=== PATIENT | male | born 1950 | race Caucasian/White ===

== ENCOUNTER 2019-09-22 06:47 | Outpatient (REF) | payer OTHER, SELFPAY ==
[2019-09-22 08:03] LABS: Basophils # 0.1 10^3/uL (0.0-0.1); Basophils % 0.9 %; Eosinophils # 0.4 10^3/uL (0.0-0.8); Eosinophils % 4.4 %; Hematocrit 47.4 % (42.0-52.0); Hemoglobin 15.2 g/dL (11.7-16.6); Lymphocytes % 22.4 %; Mean Corpuscular HGB Conc 32.1 g/dL (30.0-36.0); Mean Corpuscular Hemoglobin 27.8 pg (28.0-34.0); Mean Corpuscular Volume 86.7 fL (80-94); Mean Platelet Volume 11.1 fL (7.4-10.4); Neutrophils # 5.4 10^3/uL (1.8-7.7); Neutrophils % 60.8 %; Nucleated Red Blood Cells % 0 %; Platelet Count 326 10^3/cmm (130-400); Red Blood Count 5.47 10^6/uL (4.1-5.3); Red Cell Distribution Width 13.9 % (12.1-15.1); White Blood Count 8.9 10^3/uL (4.0-10.0)
[2019-09-22 11:07] LABS: Estmated Average Glucose 151; Hemoglobin A1C 6.9 % (4.0-6.0)
[2019-09-22 12:23] LABS: Chol HDL Ratio 5.94 mg/dL (1.0-5.00); Cholesterol 208 mg/dL (0-200); Glucose 106 mg/dL (65-115); HDL Cholesterol 35 mg/dL (60-100); LDL Cholesterol Calculated 144 mg/dL (50-129); LDL HDL Ratio 4.11 RATIO (0.00-3.22); Triglycerides 143 mg/dL (0-150)
== END 2019-09-22 06:48 | disposition home or self-care (01) ==
LOC: LAB 06:47
PROVIDERS: Family Provider Family Medicine; PCP Family Medicine; Visit Provider Dermatology
DX: Z01.89 Encounter for other specified special examinations (principal)
CPT/HCPCS: 80061; 82947; 83036; 84153; 85025

== ENCOUNTER 2020-02-07 08:01 | Day surgery (SDC) | payer MEDICARE, SELFPAY ==
[2020-02-05 14:20] VITALS: BMI 38.5
[2020-02-07 08:21] VITALS: BP 128/79; PULSE 77; RESP 18; TEMP 36.4; O2SAT 94
--- NOTE | 2020-02-07 08:31 | W.PM.OPSUD ---
Surgery/Procedure H&P Update DATE OF PROCEDURE: February 07, 2020 DATE H&P PERFORMED: 01/24/20 H&P UPDATE INFORMATION: I have reviewed H&P completed within last 30 days, I have examined patient prior to procedure and No changes to prior documentation PREOP DIAGNOSIS: History of colon polyps PRIMARY INDICATION FOR PROCEDURE: The same PLANNED PROCEDURE: Operation Date: 02/07/20 09:00 Proposed Procedures p Colonoscopy 06975 Z86.010(Not Applicable) - Ej Liu MD
[2020-02-07] MEDS: sodium chloride 0.9% 1,000 ML 30 ML IV (08:34)
[2020-02-07 08:55] VITALS: BP 112/74; PULSE 74; RESP 18; TEMP 36.3; O2SAT 97
[2020-02-07 09:10] VITALS: BP 113/70; PULSE 69; RESP 16; O2SAT 97
--- NOTE | 2020-02-07 09:47 | ANE.PACU2 ---
Inpatient post-anesthesia follow up: Airway intact: Yes Vital signs: Temperature 97.3 F Pulse Rate 69 Respiratory Rate 16 Blood Pressure 113/70 Pulse Oximetry 97 Oxygen Delivery Me thod Nasal Cannula Oxygen Flow Rate 3 Fraction of Inspir ed Oxygen Hydration adequate: Yes Nausea and vomiting: No Mental status: Baseline
== END 2020-02-07 09:16 | disposition home or self-care (01) ==
PROVIDERS: PCP Family Medicine; Visit Provider Surgery
PROC: 0DJD8ZZ Inspection of Lower Intestinal Tract, Via Natural or Artificial Opening Endoscopic (ICD-10-PCS; CPT 45378; principal; 2020-02-07 09:00)
DX: Z12.11 Encounter for screening for malignant neoplasm of colon (principal); K57.30 Diverticulosis of large intestine without perforation or abscess without bleeding; Z86.010 Personal history of colon polyps; E78.5 Hyperlipidemia, unspecified; I10 Essential (primary) hypertension
CPT/HCPCS: 12345; 45378

== ENCOUNTER 2021-02-19 06:00 | Outpatient (RCR) | payer MEDICARE, SELFPAY | END 2021-03-15 23:59 | disposition home or self-care (01) | LOC: SPT 06:00 | PROVIDERS: PCP Internal Medicine; Referring Provider Nurse Practitioner Family; Visit Provider Nurse Practitioner Family | DX: M60.9 Myositis, unspecified (principal) | CPT/HCPCS: 97110; 97161; G0283 ==

== ENCOUNTER 2021-03-16 06:00 | Outpatient (RCR) | payer MEDICARE, SELFPAY | END 2021-04-15 23:59 | disposition home or self-care (01) | LOC: SPT 06:00 | PROVIDERS: PCP Internal Medicine; Referring Provider Nurse Practitioner Family; Visit Provider Nurse Practitioner Family | DX: M60.9 Myositis, unspecified (principal); M79.10 Myalgia, unspecified site | CPT/HCPCS: 97110; G0283 ==

== ENCOUNTER 2022-03-11 14:51 | Emergency (ER) | payer MEDICARE, SELFPAY ==
--- NOTE | 2022-03-11 15:02 | CTR_ITS ---
PROCEDURE INFORMATION: Exam: CT Head Without Contrast Exam date and time: 03/11/2022 7:00 PM Age: 71 years old Clinical indication: Weakness, extremity; Right; Additional info: Weakness, numbness right hand with speech disturbance last pm TECHNIQUE: Imaging protocol: Computed tomography of the head without contrast. Radiation optimization: All CT scans at this facility use at least one of these dose optimization techniques: automated exposure control; mA and/or kV adjustment per patient size (includes targeted exams where dose is matched to clinical indication); or iterative reconstruction. COMPARISON: No relevant prior studies available. RADIATION DOSE METRICS: Total DLP (mGy-cm): 1280.38 FINDINGS: Brain: Mild brain atrophy is appreciated. No hemorrhage or evidence of acute infarction. Cerebral ventricles: No ventriculomegaly. Paranasal sinuses: Mild bilateral maxillary and ethmoid sinusitis is appreciated. Mastoid air cells: Visualized mastoid air cells are well aerated. Bones/joints: Unremarkable. No acute fracture. Soft tissues: Unremarkable. CT/CT head wo con* [id number] IMPRESSION: No acute intracranial abnormality. Mild sinusitis.
[2022-03-11 15:03] VITALS: BP 107/69; PULSE 105; RESP 22; TEMP 36.2; O2SAT 95; BMI 37.3
[2022-03-11 17:13] LABS: Basophils # 0.1 10^3/uL (0.0-0.1); Eosinophils # 0.5 10^3/uL (0.0-0.8); Eosinophils % 5.7 %; Hematocrit 49.2 % (42.0-52.0); Lymphocytes # 2.1 10^3/uL (0.8-4.8); Lymphocytes % 22.2 %; Mean Corpuscular HGB Conc 32.5 g/dL (30.0-36.0); Mean Corpuscular Hemoglobin 29.7 pg (28.0-34.0); Mean Corpuscular Volume 91.3 fl (80-94); Mean Platelet Volume 11.3 fL (7.4-10.4); Monocytes # 0.9 10^3/uL (0.2-0.9); Monocytes % 9.3 %; Neutrophils # 5.74 10^3/uL (1.8-7.7); Neutrophils % 61.4 %; Nucleated Red Blood Cells % 0 %; Platelet Count 280 10^3/cmm (130-400); Red Blood Count 5.39 10^6/uL (4.1-5.3); White Blood Count 9.4 10^3/uL (4.0-10.0)
--- NOTE | 2022-03-11 17:15 | ECG_ITS ---
[facility] Test Date: 2022-03-11 Pat Name: Jase Deluna Department: Room: Gender: Male Horse Rider: : 1950 Requested By: Mehul Valero Order Number: [id number] Yi MD: Mireya Alvarez M.D. Measurements Intervals [place] Rate: 69 P: 77 DE: 179 QRS: -35 QRSD: 88 T: 29 QT: 350 QTc: 377 Interpretive Statements SINUS RHYTHM LEFT AXIS DEVIATION [QRS AXIS < -30] POSSIBLE RIGHT VENTRICULAR CONDUCTION DELAY [RSR (QR) IN V1/V2] No previous ECG available for comparison Electronically Signed On 03-12-2022 21:22:09 CDT by Mireya Alvarez M.D. [email or web address]
[2022-03-11 17:33] LABS: Alanine Aminotransferase 18 U/L (0-41); Albumin Level 4.2 g/dL (3.5-5.2); Alkaline Phosphatase 45 IU/L (40-130); Anion Gap 14.8 (5-19); Aspartate Amino Transferase 15 U/L (0-40); Blood Urea Nitrogen 17 mg/dL (8-23); Calcium 9.6 mg/dL (8.5-10.5); Carbon Dioxide 27 mmol/L (22-29); Chloride 99 mmol/L (98-107); Glomerular Filtration Rate 73.9 mL/min (90-130); Glucose 99 mg/dL (65-115); Osmolality Calculated 286 mOsm/kg (285-295); Potassium 3.8 mmol/L (3.5-5.1); Sodium 137 mmol/L (136-145); Total Bilirubin 0.5 mg/dL (0.15-1.2); Total Protein 7.2 g/dL (6.6-8.7)
--- NOTE | 2022-03-11 17:45 | W.ED.NEUROSD ---
HPI - Neuro Symptoms/Deficit General: Chief Complaint: Neuro Symptoms/Deficit Stated Complaint: Weakness, numbness on left side Time Seen by Provider: 03/11/22 17:33 History of Present Illness: 71-year-old male patient comes in today for complaints of confusion last night. Patient reports he was playing a board game with his when he suddenly could not express his words or saying anything. At that time patient also had some numbness in the right hand. Patient reports that it resolved shortly. Patient reported a similar episode approximately 2 weeks prior to that that seem to be much briefer than this episode. Patient denies any headache and has no symptoms today. Patient appears well. Patient appears no acute distress. Review of Systems General: Reports: 10 or more systems reviewed and unremarkable except in HPI and below Neuro: Reports: numbness in extremities (Right hand) and confusion (Could not speak for a brief time) [facility] ED PFSH: Medical History (Updated 03/11/22 @ 19:52 by NATI Wright) History of colon polyps Hyperlipidemia Hypertension Surgical History History of colonoscopy with polypectomy History of excision of testis Right History of thumb surgery History of tonsillectomy Family History Denies family history of Anesthesia complication Bleeding disorder Social History Smoking and tobacco status: never smoked Second hand smoke exposure: No Alcohol intake: never Adopted: No Caregiver/support person: Yes Lives independently: Yes Household members: spouse Housing: House Marital status: Current occupational status: employed Current gender identity: Male NIH stroke score NIHSS: Level Of Consciousness - 1a: 0 Level Of Consciousness Questions - 1b: Both Correct Level Of Consciousness Commands - 1c: Both Correct Best Gaze - 2: Normal Visual Winter - 3: No Visual Loss Facial Palsy - 4: Normal Motor Arm Right - 5: No Drift Motor Arm Left - 5: No Drift Motor Leg Right - 6: No Drift Motor Leg Left - 6: No Drift Limb Ataxia - 7: Absent Sensory - 8: Normal Best Language - 9: No Aphasia Dysarthia - 10: Normal Extinction And Inattention - 11: 0 Score: Total Score: 0 Physical Exam Const: COMMON NORMALS: patient oriented x3 and alert HENMT: COMMON NORMALS: normocephalic HEAD & SCALP: normocephalic Neck/C-Spine: COMMON NORMALS: full ROM and no meningeal signs CAROTIDS: No bruit Resp: COMMON NORMALS: normal respiratory effort and clear to auscultation bilaterally AUSCULTATION: clear to auscultation bilaterally Cardio: COMMON NORMALS: regular rate and regular rhythm RATE: regular rate RHYTHM: regular rhythm Extremity: COMMON NORMALS: normal to inspection and no calf tenderness Neuro: COMMON NORMALS: patient oriented x3, moves all extremities, no focal motor deficits and no sensory deficits noted SENSORIUM/ORIENTATION: Yes alert MENINGEAL SIGNS: Yes no meningeal signs GAIT: Yes Normal gait present Psych: COMMON NORMALS: mental status grossly normal and cooperative Skin: COMMON NORMALS: no rashes or lesions noted GENERAL SKIN EXAM: no rashes or lesions noted Course Vital Signs: Vital signs: Vital Signs Temperature 97.2 F L 03/11/22 15:03 Pulse Rate 70 03/11/22 18:03 Respiratory Rate 16 03/11/22 18:03 Blood Pressure 117/73 03/11/22 18:03 Pulse Oximetry 93 03/11/22 18:03 Oxygen Delivery Me thod 03/11/22 18:03 MDM - Neuro Symptoms/Deficit Medical Decision Making 71-year-old male patient comes in today with a brief episode of inability to say a word last night and numbness in his right hand that lasted for about 5 minutes. Patient reported a similar episode about 2 weeks prior to that that he felt was much briefer. On exam patient appears well. No neurofocal deficits are noted. Skin is warm and dry. No edema is noted in the extremities. Vital signs are normal. Differential diagnosis includes CVA, TIA, dementia, laboratory values were unremarkable. CT of the head was normal. I was not able to auscultate any bruits in the carotids. Suspect patient probably might have had a small TIA patient is already on anticholesterol medication I recommended a daily baby aspirin. We will refer to neurology for further evaluation and consideration of other treatment. Lab Data : 03/11/22 16:44 03/11/22 16:[address] 03/11/22 15:02 IMPRESSION: No acute intracranial abnormality. Mild sinusitis. Laboratory Results WBC 9.4 10^3/uL (4.0-10.0) 03/11/22 16:44 RBC 5.39 10^6/uL (4.1-5.3) H 03/11/22 16:44 Hgb 16.0 g/dL (11.7-16.6) 03/11/22 16:44 Hct 49.2 % (42.0-52.0) 03/11/22 16:44 MCV 91.3 fl (80-94) 03/11/22 16:44 MCH 29.7 pg (28.0-34.0) 03/11/22 16:44 MCHC 32.5 g/dL (30.0-36.0) 03/11/22 16:44 RDW 13.0 % (12.1-15.1) 03/11/22 16:44 Plt Count 280 10^3/cmm (130-400) 03/11/22 16:44 MPV 11.3 fL (7.4-10.4) H 03/11/22 16:44 Neut % (Auto) 61.4 % 03/11/22 16:44 Lymph % (Auto) 22.2 % 03/11/22 16:44 [place] % (Auto) 9.3 % 03/11/22 16:44 Eos % (Auto) 5.7 % 03/11/22 16:44 Baso % (Auto) 1.0 % 03/11/22 16:44 Neut # (Auto) 5.74 10^3/uL (1.8-7.7) 03/11/22 16:44 Lymph # (Auto) 2.1 10^3/uL (0.8-4.8) 03/11/22 16:44 [place] # (Auto) 0.9 10^3/uL (0.2-0.9) 03/11/22 16:44 Eos # (Auto) 0.5 10^3/uL (0.0-0.8) 03/11/22 16:44 Baso # (Auto) 0.1 10^3/uL (0.0-0.1) 03/11/22 16:44 Nucleated RBC % (auto) 0 % 03/11/22 16:44 Nucleated RBCs # 0.0 /100WBC 03/11/22 16:44 Sodium 137 mmol/L (136-145) 03/11/22 16:44 Potassium 3.8 mmol/L (3.5-5.1) 03/11/22 16:44 Chloride 99 mmol/L (98-107) 03/11/22 16:44 Carbon Dioxide 27 mmol/L (22-29) 03/11/22 16:44 Anion Gap 14.8 (5-19) 03/11/22 16:44 BUN 17 mg/dL (8-23) 03/11/22 16:44 Creatinine 1.0 mg/dL (0.7-1.2) 03/11/22 16:44 GFR Calculation 73.9 mL/min (90-130) L 03/11/22 16:44 Glucose 99 mg/dL (65-115) 03/11/22 16:44 Calculated Osmolality 286 mOsm/kg (285-295) 03/11/22 16:44 Calcium 9.6 mg/dL (8.5-10.5) 03/11/22 16:44 Total Bilirubin 0.5 mg/dL (0.15-1.2) 03/11/22 16:44 AST 15 U/L (0-40) 03/11/22 16:44 ALT 18 U/L (0-41) 03/11/22 16:44 Alkaline Phosphatase 45 IU/L (40-130) 03/11/22 16:44 Total Protein 7.2 g/dL (6.6-8.7) 03/11/22 16:44 Albumin 4.2 g/dL (3.5-5.2) 03/11/22 16:44 Globulin 3.0 g/dL (1.3-4.6) 03/11/22 16:44 Discharge Plan Discharge Patient Disposition: Home Clinical Impression: Altered mental status, unspecified Condition: Stable Prescriptions: New aspirin 81 mg tablet,chewable 81 mg PO DAILY Qty: 30 0RF No Action lisinopril-hydrochlorothiazide 20-25 mg tablet 1 tab PO DAILY ascorbic acid (vitamin C) 1,000 mg tablet extended release 1,000 mg PO DAILY pravastatin 80 mg tablet 80 mg PO DAILY coenzyme Q10 [Co Q-10] 100 mg capsule 100 mg PO DAILY testosterone cypionate 200 mg/mL oil 200 mg IM .3 WEEKS omega-3 fatty acids 500 mg capsule 600 mg PO DAILY Discharge Orders: Discharge ED (Routine); Ordered 03/11/22 Ordered By: Mehul Garrido Referrals: Sonya Lr DO [Primary Care Provider] - Discharge Diet: Usual diet Discharge Activity: Increase activity as tolerated Patient Instructions: Stroke (DC) Activity Restrictions/Additional Instructions: Activity as tolerated. Add a baby aspirin to your regimen daily. Continue with your cholesterol medication. Follow-up with neurologist for further evaluation and treatment. Return to ER for worsening symptoms such as chest pain, shortness of breath, severe headache, or further neurologic changes. Coding Level of Care Code ED Treating Machine Operator for Anita Zheng
[2022-03-11 18:03] VITALS: BP 117/73; PULSE 70; RESP 16; O2SAT 93
--- NOTE | 2022-03-12 08:17 | DCPLANNER ---
Addendum entered by Margaret Branham 03/26/22 12:41: Patient had a follow up appointment scheduled fro 03.25.22 with neurology - patient did attend appointment. Original Note: auto leasing manager had message to schedule a follow up appointment for patient with neurology. auto leasing manager sent patients information to the front office staff at neurology. Patients information will be printed and reviewed. Clinic will call patient with appointment information.
== END 2022-03-11 20:02 | disposition home or self-care (01) ==
PROVIDERS: Emergency Provider Nurse Practitioner Family; PCP Internal Medicine
DX: R41.82 Altered mental status, unspecified (principal); I10 Essential (primary) hypertension; E78.5 Hyperlipidemia, unspecified
CPT/HCPCS: 70450; 80053; 85025; 93005; 99285

== ENCOUNTER → 2022-03-25 08:21 | Outpatient (BNVA) | payer MEDICARE, SELFPAY | PROVIDERS: PCP Nurse Practitioner Family; Referring Provider Nurse Practitioner Family; Visit Provider Nurse Practitioner | DX: I69.320 Aphasia following cerebral infarction (principal); I69.398 Other sequelae of cerebral infarction; R20.2 Paresthesia of skin; F41.9 Anxiety disorder, unspecified | CPT/HCPCS: 99204 ==

== ENCOUNTER 2022-05-15 07:24 | Outpatient (CLI) | payer MEDICARE, SELFPAY ==
--- NOTE | 2022-05-15 07:45 | USCV_ITS ---
Jase Deluna Age: 71 Gender: M : 1950 Exam Date: 05/15/2022 07:44 Ordering Phys: Branden Martinez CREATIVE SERVICES INTERN MSN AGACNP-BC Technologist: Effie Hassan Exam Location: [facility] [place] Indication: TIA BP: 120 / 84 HR: 74 Rhythm: Sinus Technical Quality: Adequate MEASUREMENTS (Male / Female) Normal Values 2D ECHO LVOT Diameter 2.0 cm LV Ejection Fraction MOD 2C 63.3 % LV Ejection Fraction 2C AL 64.5 % LA Diameter 3.4 cm LA Width 3.1 cm LA Height 5.4 cm RA Width 3.5 cm RA Height 4.8 cm Aorta at Sinotubular Diameter 2.0 cm IVC Diameter 1.6 cm M-MODE Aortic Annulus Diameter 3.1 cm LA Ao Ratio MM 1.1 MV E Point Septal Separation 0.3 cm DOPPLER AV Peak Velocity 135.0 cm/s LVOT Peak Velocity 91.0 cm/s AV Area Cont Eq vti 2.8 cm squared AV Area Cont Eq pk 2.2 cm squared MV Peak Velocity 73.0 cm/s MV Area PHT 3.3 cm squared Mitral E to A Ratio 0.9 MV E' Velocity 34.0 cm/s Mitral E to MV E' Ratio 6.8 Mitral E to LV E' Lateral Ratio 7.1 Mitral E to LV E' Septal Ratio 6.6 TR Peak Velocity 247.6 cm/s TR Peak Gradient 24.5 mmHg TR Mean Velocity 201.2 cm/s TR Mean Gradient 17.2 mmHg TR Velocity Time Integral 72.1 cm TV Peak E Velocity 51.0 cm/s Right Atrial Pressure 3.0 mmHg Pulmonary Artery Systolic Pressu 27.5 mmHg PV Peak Velocity 89.0 cm/s RV Acceleration Time 0.1 s RV Ejection Time 0.3 s RV AcT/ET 0.4 FINDINGS Left Ventricle Left ventricle is normal in size. LV systolic function is normal with EF of 55 to 60%. No regional wall motion abnormalities are seen. Grade 1 diastolic dysfunction Right Ventricle RV is normal in size and function Right Atrium Normal in size. Bubble study performed however images are of limited quality. Grossly no significant intracardiac shunt seen Left Atrium Mild left atrial enlargement Mitral Valve Structurally normal mitral valve. Trace mitral regurgitation Aortic Valve Structurally normal aortic valve. No significant stenosis or regurgitation. Tricuspid Valve Trace tricuspid regurgitation. Insufficient TR jet to calculate RVSP. Pulmonic Valve Not well-visualized Pericardium Normal Aorta Normal in size IVC Appears to be normal CONCLUSIONS LV systolic function is normal with EF of 55 to 60%. Grade 1 diastolic dysfunction Bubble study was performed however images were of limited quality. Grossly no significant intracardiac shunt seen. Trace mitral regurgitation Mild left atrial enlargement Trace tricuspid regurgitation No comparison studies available Dayton Doty MD (Electronically Signed) Final Date: 21 May 2022 10:30 S
--- NOTE | 2022-05-15 08:33 | MR_ITS ---
WS: [id number] MRA CAROTID ARTERIES HISTORY: G45.9 - Transient cerebral ischemic attack, unspecified COMPARISON: None available. TECHNIQUE: MRA is performed without contrast. MIP and source images are reviewed. Only noncontrast examination is performed. The proximal and distal carotid arteries are limited. Orig ins of the carotid arteries are not well visualized. Bifurcations appear intact. There is no high-gra de stenosis. External carotid arteries are normal caliber. Subclavian Arteries: Not well visualized. Vertebral Arteries: Dominant RIGHT vertebral artery. The LEFT vertebral artery is small caliber throu ghout.
--- NOTE | 2022-05-15 08:45 | MR_ITS ---
WS: [id number] MRA ANGIOGRAPHY [place] OF [place] HISTORY: G45.9 - Transient cerebral ischemic attack, unspecified COMPARISON: None available. TECHNIQUE: 3-D MR angiography is performed of the [place]. All images are reviewed including source images. Distal RIGHT vertebral artery is dominant. Very small caliber distal LEFT vertebral artery but it is patent. Normal basilar artery. Posterior cerebral arteries are both identified. Posterior communicati ng arteries are very small caliber. Intracranial portion of the internal carotid arteries are normal course and caliber. No significant a therosclerosis, stenosis or aneurysm identified. Middle and anterior cerebral arteries are both paten t with no significant disease. Anterior communicating artery is also normal. MR/MR angio head wo con [id number] IMPRESSION: 1. No significant atherosclerotic disease, stenosis or aneurysms are identifie d. 2. Very small caliber distal LEFT vertebral artery.
--- NOTE | 2022-05-15 09:00 | MR_ITS ---
WS: [id number] MRI BRAIN WITH AND WITHOUT CONTRAST HISTORY: G45.9 - Transient cerebral ischemic attack, unspecified COMPARISON: CT head 03/11/2022 TECHNIQUE: Multiplanar imaging performed through the brain with MultiHance 20 ml's IV. No acute infarcts are seen. Cantu-white matter differentiation is well preserved. Significant motion a rtifact on the FLAIR sequences. Mild cerebral atrophy. No susceptibility artifacts or prior lacunar infarcts. Ventricles and extra-axial spaces are normal. Clivus and pituitary gland are normal. Visualized posterior fossa and brainstem are also normal. Postcontrast images are negative for masses or vascular malformations. Dural venous sinuses are normal. Paranasal sinuses: Diffuse mucoperiosteal thickening throughout the sinus cavities. No air-fluid leve ls. Mastoid air cells: Normal. Calvarium and scalp: Normal. MR/MR head wo/w con [id number] IMPRESSION: 1. No acute infarct or prior infarct. 2. Mild cerebral atrophy. 3. No enhancing masses or vascular malformation.
--- NOTE | 2022-05-15 10:00 | MR_ITS ---
WS: [id number] MRA CAROTID ARTERIES HISTORY: G45.9 - Transient cerebral ischemic attack, unspecified COMPARISON: None available. TECHNIQUE: MRA is performed without contrast. MIP and source images are reviewed. Only noncontrast examination is performed. The proximal and distal carotid arteries are limited. Orig ins of the carotid arteries are not well visualized. Bifurcations appear intact. There is no high-gra de stenosis. External carotid arteries are normal caliber. Subclavian Arteries: Not well visualized. Vertebral Arteries: Dominant RIGHT vertebral artery. The LEFT vertebral artery is small caliber cruz munoz. MR/MR angio neck wo con [id number] IMPRESSION: 1. No significant carotid artery stenosis involving the bifurcations. 2. Small caliber LEFT vertebral artery.
== END 2022-05-15 07:25 | disposition home or self-care (01) ==
LOC: RAD 07:25
PROVIDERS: PCP Nurse Practitioner Family; Visit Provider Nurse Practitioner
DX: G45.9 Transient cerebral ischemic attack, unspecified (principal); G31.9 Degenerative disease of nervous system, unspecified
CPT/HCPCS: 70544; 70547; 70548; 70553; A9577; C8929

== ENCOUNTER 2024-06-19 15:40 | Outpatient (CLI) | payer MEDICARE, SELFPAY ==
--- NOTE | 2024-06-19 15:43 | XRR_ITS ---
PROCEDURE INFORMATION: Exam: XR Right Tibia and Fibula Exam date and time: 06/19/2024 3:50 PM Age: 73 years old Clinical indication: Lower leg; Right; Patient HX: , Pain started while working, pain in upper tib/fib towards knee; Additional info: Pain in right lower leg TECHNIQUE: Imaging protocol: Radiologic exam of the right tibia and fibula. Views: 2 views. COMPARISON: No relevant prior studies available. FINDINGS: Bones/joints: Normal. Soft tissues: Normal. XR/XR tibia fibula RT 2V [id number] IMPRESSION: No acute findings.
== END 2024-06-19 15:41 | disposition home or self-care (01) ==
LOC: RAD 15:41
PROVIDERS: PCP Nurse Practitioner Family; Visit Provider Family Medicine
DX: M79.661 Pain in right lower leg (principal)
CPT/HCPCS: 73590

== ENCOUNTER 2024-06-27 06:45 | Outpatient (CLI) | payer MEDICARE, SELFPAY ==
--- NOTE | 2024-06-27 06:30 | US_ITS ---
WS: [id number] ULTRASOUND SOFT TISSUES RIGHT lower extremity. HISTORY: SOFT TISSUE RIGHT LEG COMPARISON: None available. TECHNIQUE: 2-D and color Doppler imaging is submitted. Ultrasound is directed over the lateral RIGHT leg at the area of concern. There is soft tissue edema. There is slight change in direction soft tissues and displacement of the fascia corresponding to the abnormality. This area is slightly hypoechoic to the remaining soft tissues. No Doppler submitted of this area. US/US soft tissue/extremity [id number] IMPRESSION: Focal area of edema and displacement of the adjacent fascial and muscle planes corresponding to the palpable abnormality over the lateral RIGHT lower extremit y. This may be a hematoma. If this area of pain persists and is a palpable mass consider MRI of the RIGHT lower extremity with and without contrast.
== END 2024-06-27 06:51 | disposition home or self-care (01) ==
PROVIDERS: PCP Nurse Practitioner Family; Visit Provider Family Medicine
DX: R22.41 Localized swelling, mass and lump, right lower limb (principal); M79.661 Pain in right lower leg
CPT/HCPCS: 76882

== ENCOUNTER → 2024-07-31 15:16 | Outpatient (BNVA) | payer MEDICARE, SELFPAY | PROVIDERS: PCP Family Medicine; Visit Provider Nurse Practitioner | DX: S86.111A Strain of other muscle(s) and tendon(s) of posterior muscle group at lower leg level, right leg, initial encounter; X58.XXXA Exposure to other specified factors, initial encounter | CPT/HCPCS: 99204 ==

== ENCOUNTER → 2024-08-24 13:58 | Outpatient (BNVA) | payer MEDICARE, SELFPAY | PROVIDERS: PCP Family Medicine; Visit Provider Nurse Practitioner | DX: S86.111D Strain of other muscle(s) and tendon(s) of posterior muscle group at lower leg level, right leg, subsequent encounter (principal); X58.XXXD Exposure to other specified factors, subsequent encounter | CPT/HCPCS: 99213 ==